=== PATIENT | female | born 1995 | race Caucasian/White ===

== ENCOUNTER 2017-01-06 22:36 | Emergency (ER) | payer BC ==
[2017-01-06 22:44] VITALS: BP 114/72; PULSE 73; TEMP 98.2; BMI 22.1
--- NOTE | 2017-01-07 00:10 | PDOC ---
History of Present Illness - General Chief Complaint: Injury Stated Complaint: LACERATION LEFT CALF Time Seen by Provider: 01/06/17 22:37 - History of Present Illness Initial Comments: This 21-year-old woman presents with a small laceration lateral aspect of the left lower leg sustained when the cut edge of the shard of glass lacerated the area. Patient states that the glass was protruding from a bag of refuse. Patient walked too close to the back and her lower leg was cut. No other injury sustained. Patient states that this injury occurred about 12 noon today. He has been intermittently losing since then. There has been no weakness of the leg or sensory changes. Patient is up-to-date on her immunizations, having received tetanus prophylaxis prior to starting college 3 years ago. Past History - Past Medical History Allergies/Adverse Reactions: Allergies Allergy/AdvReac Type Severity Reaction Status Date / Time No Known Allergies Allergy Verified 01/06/17 22:37 Home Medications: Ambulatory Orders NK [No Known Home Medication] 01/06/17 Anemia: No Asthma: No Cancer: No Cardiac Disorders: No CVA: No COPD: No CHF: No Dementia: No Diabetes: No GI Disorders: No Disorders: No HTN: No Hypercholesterolemia: No Liver Disease: No Seizures: No Thyroid Disease: No - Immunization History Immunization Up to Date: Yes - Psycho/Social/Smoking Cessation Hx Anxiety: No Suicidal Ideation: No Smoking History: Never smoked Have you smoked in the past 12 months: No Information on smoking cessation initiated: No Hx Alcohol Use: No Drug/Substance Use Hx: No Substance Use Type: None Hx Substance Use Treatment: No Review of Systems - Review of Systems Able to Perform ROS?: Yes Comments:: 12 point review of systems is negative except for what is noted in the history of present illness *Physical Exam - Vital Signs Last Vital Signs Temp Pulse Resp BP Pulse Ox 98.2 F 73 16 114/72 100 01/06/17 22:39 01/06/17 22:39 01/06/17 22:39 01/06/17 22:39 01/06/17 22:39 - Physical Exam Comments: GENERAL: Young adult female, alert and oriented 3, in no acute distress HEAD: Normal with no signs of trauma. EYES: PERRLA, EOMI, sclera anicteric, conjunctiva clear. ENT: Ears normal, nares patent, oropharynx clear without exudates. Moist mucous membranes. NECK: Normal range of motion, supple without lymphadenopathy, JVD, or masses. LUNGS: Breath sounds equal, clear to auscultation bilaterally. No wheezes, and no crackles. HEART:Regular rate and rhythm, normal S1 and S2 without murmur, rub or gallop. ABDOMEN:.normal bowel sounds No guarding,tenderness or rebound.No masses No distention. EXTREMITIES: Left lower extremity: 1 cm partial thickness flap-type laceration lateral aspect of the thigh; NEUROLOGICAL: Cranial nerves II through XII grossly intact. Normal speech. No focal neurological deficits. MUSCULOSKELETAL: Back non-tender to palpation, no CVA tenderness SKIN: Warm, Dry, normal turgor, no rashes or lesions noted. Procedures - Laceration/Wound Repair Left Lower Lateral Proximal Leg Wound Length: to 2.5 cm Wound's Depth, Shape: flap Irrigated w/ Saline: Yes Wound Repaired With: Dermabond *DC/Admit/Observation/Transfer Diagnosis at time of Disposition: Laceration of left lower leg Qualifiers: Encounter type: initial encounter Qualified Code(s): S81.812A - Laceration without foreign body, left lower leg, initial encounter - Discharge Dispostion Disposition: HOME Condition at time of disposition: Stable - Patient Instructions Printed Discharge Instructions: DI for Laceration Repair With Dermabond Additional Instructions: Keep area dry as possible for the next 24 hours Use large Band-Aid as needed on wound (but keep open to air as much as possible ) Return to ER or see your doctor of area becomes red/swollen/painful
== END 2017-01-07 00:13 | disposition home or self-care (01) ==
LOC: FER 22:36
PROC: 0HQLXZZ Repair Left Lower Leg Skin, External Approach (ICD-10-PCS; principal; 2017-01-06)
DX: S81.812A Laceration without foreign body, left lower leg, initial encounter (principal); W25.XXXA Contact with sharp glass, initial encounter; Y93.89 Activity, other specified; Y92.9 Unspecified place or not applicable
CPT/HCPCS: 99281-25

== ENCOUNTER 2018-08-02 17:57 | Emergency (ER) | payer BC ==
[2018-08-02 18:13] VITALS: BP 112/74; PULSE 71; TEMP 98.3; BMI 23.0
--- NOTE | 2018-08-02 18:44 | PDOC ---
History of Present Illness - General Chief Complaint: Back Pain Stated Complaint: BACK PAIN/NUMBNESS OF LEG Time Seen by Provider: 08/02/18 18:35 History Source: Patient Exam Limitations: Clinical Condition - History of Present Illness Initial Comments: 08/02/18 18:39 Patient with history of chronic back pain no status post spinal fusion a year ago present with complaint of lower back pain for 3 days. Patient reports she does a lot of workout in the gym. Denies any trauma or injury to the back. Report increased pain to lower back when getting up from sitting position with pain radiating to back of bilateral thigh. Denies any other symptoms. Timing/Duration: other (3 days) Past History - Past Medical History Allergies/Adverse Reactions: Allergies Allergy/AdvReac Type Severity Reaction Status Date / Time No Known Allergies Allergy Verified 08/02/18 18:11 Home Medications: Ambulatory Orders Ethinyl Estradiol/Drospirenone [Ocella 3 mg-0.03 mg Tablet] 1 each PO DAILY Methocarbamol [Robaxin -] 500 mg PO BID PRN #14 tablet 08/02/18 Naproxen 500 mg PO BID PRN #20 tablet 08/02/18 Anemia: No Asthma: No Cancer: No Cardiac Disorders: No CVA: No COPD: No CHF: No Dementia: No Diabetes: No GI Disorders: No Disorders: No HTN: No Hypercholesterolemia: No Liver Disease: No Seizures: No Thyroid Disease: No - Immunization History Immunization Up to Date: Yes - Suicide/Smoking/Psychosocial Hx Smoking History: Never smoked Have you smoked in the past 12 months: No Hx Alcohol Use: No Drug/Substance Use Hx: No Substance Use Type: None Hx Substance Use Treatment: No Review of Systems - Review of Systems Able to Perform ROS?: Yes Is the patient limited Maldivian proficient: No Constitutional: No: Weakness HEENTM: No: Symptoms Reported Respiratory: No: Symptoms reported Cardiac (ROS): No: Symptoms Reported ABD/GI: No: Nausea, Vomiting : No: Burning, Dysuria, Discharge, Frequency, Urgency Musculoskeletal: Yes: See HPI, Back Pain, Muscle Pain (lower back ) Neurological: No: Numbness, Paresthesia All Other Systems: Reviewed and Negative *Physical Exam - Vital Signs Last Vital Signs Temp Pulse Resp BP Pulse Ox 98.3 F 71 18 112/74 99 08/02/18 18:11 08/02/18 18:11 08/02/18 18:11 08/02/18 18:11 08/02/18 18:11 - Physical Exam Comments: 08/02/18 18:43 GENERAL: Well developed, well nourished. Awake and alert. No acute distress. CARDIOVASCULAR: Regular rate and rhythm. No murmurs, rubs, or gallops. PULMONARY: No evidence of respiratory distress. Lungs clear to auscultation bilaterally. No wheezing, rales or rhonchi. ABDOMINAL: Soft. Non-tender. Non-distended. No rebound or guarding. No organomegaly. Normoactive bowel sounds MUSCULOSKELETAL : mild tenderness over posterior paravertebral muscle of lumbosacral spine of L3-S1 on bilateral sides. Mild tenderness along the line of vertical linear surgical scar. No bony deformities SKIN: Warm and dry. Normal capillary refill. No rashes. No jaundice. NEUROLOGICAL: Alert, awake, appropriate. No motor deficits in the lower extremities. Gait is normal without ataxia. PSYCHIATRIC: Cooperative. Good eye contact. Appropriate mood and affect. General Appearance: Yes: Nourished, Appropriately Dressed. No: Apparent Distress Moderate Sedation - Procedure Monitoring Vital Signs: Procedure Monitoring Vital Signs Temperature 98.3 F 08/02/18 18:11 Pulse Rate 71 08/02/18 18:11 Respiratory Rate 18 08/02/18 18:11 Blood Pressure 112/74 08/02/18 18:11 O2 Sat by Pulse Oximetry (%) 99 08/02/18 18:11 ED Treatment Course - RADIOLOGY Radiology Studies Ordered: Category Date Time Status SPINE-LUMBAR SACRAL [RAD] Stat Radiology 08/02/18 18:38 Ordered Medical Decision Making - Medical Decision Making 08/02/18 18:44 Patient with history of chronic back pain now status post spinal fusion present with complaint of three-day history of persistent lower back pain which is worse with movement. Patient does lab workout in the gym. Denies any trauma or injury to back. Exam significant for moderate tenderness to lower lumbosacral region. Symptoms likely muscle strain with back spasm. X-ray of lumbosacral spine ordered to rule out acute pathology. 08/02/18 19:02 x-rays of lumbosacral shows no acute pathology. suurgical hardware in place to lower lumber spine into sacrum. straightening of lumbar spine c/w spasm. Patient stable for outpatient management with robaxin and naproxen with ortho spine follow-up *DC/Admit/Observation/Transfer Diagnosis at time of Disposition: Lumbago with sciatica Qualifiers: Chronicity: acute Back pain laterality: midline Sciatica laterality: bilateral sciatica Qualified Code(s): M54.42 - Lumbago with sciatica, left side - Discharge Dispostion Disposition: HOME Condition at time of disposition: Stable Decision to Admit order: No - Prescriptions Prescriptions: Methocarbamol [Robaxin -] 500 mg PO BID PRN #14 tablet PRN Reason: Back Pain Naproxen 500 mg PO BID PRN #20 tablet PRN Reason: Back Pain - Referrals Referrals: Bhavesh Rosales MD, [facility] [Staff Physician] - - Patient Instructions Printed Discharge Instructions: DI for Back Pain With Sciatica Additional Instructions: X-rays shows no back dislocation or fracture. Take prescribed medications as needed for back pains. Apply heat to lower back 2-3 times a day as needed for back pain. Follow-up with referred neurospine specialist if no improvement in 4 days - Post Discharge Activity
[2018-08-02] MEDS ORDERED: NAPROXEN 500 MG TABLET (FP) PO ONE (19:11)
[2018-08-02] MEDS ORDERED: METHOCARBAMOL 500 MG TABLET PO ONE (19:11)
[2018-08-02] MEDS ORDERED: METHOCARBAMOL 500 MG TABLET ONE (19:13)
[2018-08-02] MEDS ORDERED: NAPROXEN 500 MG TABLET (FP) ONE (19:13)
== END 2018-08-02 19:14 | disposition home or self-care (01) ==
LOC: JERFT 17:57
DX: M54.31 Sciatica, right side (principal); M54.32 Sciatica, left side
CPT/HCPCS: 72100-TC-FY; 99281-25

== ENCOUNTER 2021-05-05 04:58 | Day surgery (SDC) | payer BC ==
[2021-05-04 10:47] VITALS: BMI 22.6
[2021-05-05] MEDS ORDERED: DEXAMETHASONE SOD PHOSPHATE 10 MG/1 ML VIAL ONE (07:59)
[2021-05-05] MEDS ORDERED: LIDOCAINE HCL/PF 1% SDV 5ML VIAL ONE (08:06)
[2021-05-05] MEDS ORDERED: LIDOCAINE HCL 1% PRESERVATIVE FREE - 30ML VIAL IJ ONE (14:11)
[2021-05-05] MEDS ORDERED: IOHEXOL 180 MG/1 ML ML IJ ONE (14:13)
[2021-05-05] MEDS ORDERED: DEXAMETHASONE SOD PHOSPHATE 10 MG/1 ML VIAL IM ONE (14:18)
[2021-05-05 14:51] VITALS: TEMP 98.8
[2021-05-05 15:04] VITALS: BP 120/70; PULSE 74
== END 2021-05-05 15:05 | disposition home or self-care (01) ==
LOC: JASU-SURG 04:58
PROVIDERS: ATTEND Pain Medicine Pain Medicine
PROC: 3E0R33Z Introduction of Anti-inflammatory into Spinal Canal, Percutaneous Approach (ICD-10-PCS; 2021-05-05)
PROC: 3E0R3BZ Introduction of Anesthetic Agent into Spinal Canal, Percutaneous Approach (ICD-10-PCS; principal; 2021-05-05 14:30)
DX: M54.16 Radiculopathy, lumbar region (principal)
CPT/HCPCS: 76000-TC-FY; 81025; J1100

== ENCOUNTER → 2021-05-10 | Emergency (ER) | payer BC | END | disposition home or self-care (01) | LOC: JVIRT 09:33 | DX: U07.1 COVID-19 (principal) | CPT/HCPCS: 99283-25; C9803; U0003; U0005 ==

== ENCOUNTER 2022-11-15 15:56 | Emergency (ER) | payer BC ==
[2022-11-15 16:06] VITALS: BP 126/72; PULSE 96; RESP 18; TEMP 98; BMI 28.3
== END 2022-11-15 17:40 | disposition home or self-care (01) ==
LOC: JER 15:56
DX: O12.03 Gestational edema, third trimester (principal); M79.89 Other specified soft tissue disorders; M79.604 Pain in right leg; Z3A.33 33 weeks gestation of pregnancy
CPT/HCPCS: 93970-TC; 99284-25